=== PATIENT | female | born 1975 | race African-American/Black ===

== ENCOUNTER 2022-12-04 12:38 | Inpatient (IN) | payer BC, OTHER ==
[~2022-12-04] VITALS: Ht 170.2 cm; Wt 101.0 kg
[2022-12-04] MEDS ORDERED: MORPHINE SULFATE 4 MG/ML SYR/VIAL IV ONE (13:00)
[2022-12-04] MEDS ORDERED: SODIUM CHLORIDE 0.9% 1,000 ML IV ONE (13:00)
[2022-12-04] MEDS ORDERED: METOCLOPRAMIDE HCL 5MG/ml INJ 2ml VIAL IV ONE (13:00)
[2022-12-04 13:25] LABS: Basophils # (auto) 0 10 ^3/uL (0-0.2); Basophils % (auto) 0.5 % (0.0-2.0); Eosinophils # (auto) 0 10 ^3/uL (0-0.8); Eosinophils % (auto) 0.2 % (0.0-7.0); Monocytes # (auto) 0.6 10 ^3/uL (0-1.3)
[2022-12-04 13:27] LABS: Hematocrit 29.6 % (36.0-46.0); Lymphocytes # (auto) 1.7 10 ^3/uL (0.4-5.4); Lymphocytes % (auto) 17.8 % (10.0-50.0); Mean Corpuscular Hemoglobin 29.6 pg (28.0-32.0); Mean Corpuscular Hgb Conc. 33.7 g/dL (32.0-36.0); Mean Corpuscular Volume 87.7 fL (80.0-100.0); Monocytes % (auto) 6.3 % (0.0-12.0); Neutrophils # (auto) 7.1 10 ^3/uL (1.6-8.6); Neutrophils % (auto) 75.2 % (37.0-80.0); Red Blood Cells 3.38 10^6/uL (4.0-5.20); Red Cell Distribution Width 15.1 % (11.8-14.3); White Blood Cell 9.4 10^3/uL (4.4-10.8)
[2022-12-04] MEDS ORDERED: KETOROLAC TROMETH 30 MG/ML 1ML VIAL IV ONE ×2 (13:45→22:00)
[2022-12-04 13:49] LABS: Albumin 3.3 g/dL (3.4-5.0); BUN/Creatinine Ratio 13.9; Calcium 8.9 mg/dL (8.5-10.1); Potassium 4.1 mmol/L (3.5-5.1)
[2022-12-04 13:51] LABS: Bilirubin, Total 0.4 mg/dL (0.2-1.0); Total Protein 7.2 g/dL (6.4-8.2)
[2022-12-04 14:05] LABS: Urine Bacteria FEW /hpf (None Seen); Urine Blood 3+ /uL (Negative); Urine Mucus FEW (None Seen); Urine Specific Gravity 1.031 (1.001-1.035); Urine WBC 7 /hpf (0 - 5)
[2022-12-04] MEDS ORDERED: cefTRIAXone 1GM/50ML D5W 50 ML IV ONE (14:15)
[2022-12-04 17:25] LABS: INR 1.02 (0.9-1.15)
[2022-12-04] MEDS ORDERED: ACETAMINOPHEN 500 MG TAB PO PRN (17:30)
[2022-12-04] MEDS ORDERED: HYDROcodone-ACET 5/325MG TAB PO PRN (17:30)
[2022-12-04] MEDS ORDERED: DEXTROSE (50%) 50ML SYRG IV PRN (17:30)
[2022-12-04] MEDS ORDERED: ONDANSETRON HCL 4 MG/2 ML VIAL IV PRN (17:30)
[2022-12-04 22:00] VITALS: BP 125/84
[2022-12-04] MEDS: InsuLIN REG 1unit/0.01ml Soln (100units/ml) SC SCH (22:00)
[2022-12-04] MEDS ORDERED: KETOROLAC TROMETH 30 MG/ML 1ML VIAL IV PRN (22:00)
[2022-12-05] MEDS: ACCU-CHEK COMFORT CURVE STRIP VI SCH ×5 (00:02→21:32)
[2022-12-05] MEDS ORDERED: LOSA25TA2 PO (02:15)
[2022-12-05] MEDS ORDERED: OMEG1CAP31 PO (02:19)
[2022-12-05] MEDS ORDERED: HYDR25TA4 PO (02:19)
[2022-12-05] MEDS ORDERED: FERR18TA PO (02:19)
[2022-12-05] MEDS ORDERED: METF-370 PO (02:19)
[2022-12-05] MEDS ORDERED: ESOM40CA39 PO (02:19)
[2022-12-05 05:00] VITALS: BP 113/74
[2022-12-05] MEDS: InsuLIN REG 1unit/0.01ml Soln (100units/ml) SC SCH ×4 (06:59→21:32)
[2022-12-05 09:00] VITALS: BP 119/76
[2022-12-05 09:24] LABS: INR 0.97 (0.9-1.15); Partial Thromboplastin Time 21.5 sec (24.6-33.4)
[2022-12-05] MEDS: LOSARTAN POTASSIUM 50 MG TAB PO SCH (09:51)
[2022-12-05] MEDS: HCTZ 25 MG TAB PO SCH (09:52)
[2022-12-05] MEDS: cefTRIAXone 1GM/50ML D5W 50 ML IV SCH (09:52)
[2022-12-05] MEDS: PANTOPRAZOLE 40 MG TAB PO SCH (09:52)
[2022-12-05] MEDS: FLUTICASONE PROP NASAL SPR 0.05 % (50MCG) 16GM EACHNOSTRI SCH ×2 (12:39→21:32)
[2022-12-05 13:00] VITALS: BP_SYST 119; BP_SYST 135; BP_DIAS 76; BP_DIAS 96
[2022-12-05] MEDS: HYDROcodone-ACET 10/325MG TAB PO PRN (16:35)
[2022-12-05 17:00] VITALS: BP 130/85
[2022-12-05 22:00] VITALS: BP 134/82
[2022-12-06 05:00] VITALS: BP 141/83
[2022-12-06] MEDS: MORPHINE SULFATE INJ 2 MG/ml SYRG IV PRN ×2 (05:39→16:41)
[2022-12-06] MEDS: ACCU-CHEK COMFORT CURVE STRIP VI SCH ×4 (06:15→22:22)
[2022-12-06] MEDS: InsuLIN REG 1unit/0.01ml Soln (100units/ml) SC SCH ×4 (06:15→22:00)
[2022-12-06] MEDS ORDERED: SUCCINYLCHOLINE CHLORIDE 20 MG/ML 10ML VIAL IV ONE (07:39)
[2022-12-06] MEDS ORDERED: DOCU-94 PO ×2 (07:40)
[2022-12-06] MEDS ORDERED: IBUP800T27 PO ×2 (07:40)
[2022-12-06] MEDS ORDERED: CEPH500T PO ×2 (07:40)
[2022-12-06] MEDS ORDERED: HYDR-4072 PO ×2 (07:40)
[2022-12-06] MEDS ORDERED: fentaNYL CITRATE 100 MCG/2 ML VL ONE ×2 (07:41→09:42)
[2022-12-06] MEDS ORDERED: MIDAZOLAM HCL 2MG/2ML 2ml VIAL (1mg/ml) ONE (07:41)
[2022-12-06] MEDS ORDERED: ONDANSETRON HCL 4 MG/2 ML VIAL ONE (07:42)
[2022-12-06] MEDS ORDERED: DexAMETHasone SOD PHOS 10MG/1ML VIAL INJ ONE (07:42)
[2022-12-06] MEDS ORDERED: PROPOFOL 10 MG/ML 20 ML IV ONE (07:43)
[2022-12-06] MEDS ORDERED: ceFAZolin 1GM/50ML 100 ML IV ONE (07:58)
[2022-12-06] MEDS ORDERED: ACETAMINOPHEN IV 100 ML IV ONE (08:00)
[2022-12-06] MEDS ORDERED: ceFAZolin 1GM/50ML 50 ML IV ONE ×3 (08:00→16:00)
[2022-12-06] MEDS: cefTRIAXone 1GM/50ML D5W 50 ML IV SCH (09:00)
[2022-12-06] MEDS ORDERED: ceFAZolin 2 GM in D5W 5% 100 ML IV ONE (09:30)
[2022-12-06] MEDS ORDERED: SUGAMMADEX 200mg/2ml Vial (100MG/ML) IV ONE (09:34)
[2022-12-06] MEDS ORDERED: KETOROLAC TROMETH 60MG/2ML VIAL ONE (09:34)
[2022-12-06] MEDS ORDERED: BUPIVACAINE 0.25% INJ 50ML VIAL ONE (09:39)
[2022-12-06] MEDS: FLUTICASONE PROP NASAL SPR 0.05 % (50MCG) 16GM EACHNOSTRI SCH ×2 (10:00→22:34)
[2022-12-06] MEDS ORDERED: ACETAMINOPHEN IV 1000 MG/100ML (10MG/ML) IV ONE (10:15)
[2022-12-06] MEDS ORDERED: ONDANSETRON HCL 4 MG/2 ML VIAL IV PRN (10:30)
[2022-12-06] MEDS ORDERED: ACCU-CHEK COMFORT CURVE STRIP VI ONE (10:30)
[2022-12-06] MEDS ORDERED: HYDROcodone-ACET 5/325MG TAB PO PRN (10:30)
[2022-12-06] MEDS ORDERED: LABETALOL HCL 5 MG/ML 4ML SYRINGE IV PRN (10:30)
[2022-12-06] MEDS ORDERED: HYDROmorphone HCL 2 MG/ML VL/or syr IV PRN ×3 (10:30)
[2022-12-06 12:41] VITALS: BP 123/75
[2022-12-06] MEDS: SODIUM CHLORIDE 0.9% 1,000 ML IV SCH ×2 (14:18→16:00)
[2022-12-06] MEDS: MORPHINE SULFATE 4 MG/ML SYR/VIAL IV PRN ×2 (14:51→22:23)
[2022-12-06] MEDS: ONDANSETRON HCL 4 MG/2 ML VIAL IV PRN (16:40)
[2022-12-06] MEDS: LOSARTAN POTASSIUM 50 MG TAB PO SCH (16:46)
[2022-12-06] MEDS: PANTOPRAZOLE 40 MG TAB PO SCH (16:46)
[2022-12-06] MEDS: HCTZ 25 MG TAB PO SCH (16:47)
[2022-12-06 17:00] VITALS: BP 130/85
[2022-12-06] MEDS: HYDROcodone-ACET 10/325MG TAB PO PRN (18:19)
[2022-12-06 22:00] VITALS: BP 115/82
[2022-12-07] VITALS (13 sets, daily range): BP systolic 113–146; BP diastolic 72–95
[2022-12-07] MEDS: SODIUM CHLORIDE 0.9% 1,000 ML IV SCH ×4 (00:09→23:04)
[2022-12-07] MEDS: HYDROcodone-ACET 10/325MG TAB PO PRN (04:45)
[2022-12-07] MEDS: ONDANSETRON HCL 4 MG/2 ML VIAL IV PRN ×3 (06:19→23:03)
[2022-12-07] MEDS: ACCU-CHEK COMFORT CURVE STRIP VI SCH ×4 (06:24→22:18)
[2022-12-07] MEDS: InsuLIN REG 1unit/0.01ml Soln (100units/ml) SC SCH ×4 (06:24→22:00)
[2022-12-07] MEDS ORDERED: PHENYLEPHRINE HCL 10 MG/ML VL ONE (07:11)
[2022-12-07] MEDS: MORPHINE SULFATE 4 MG/ML SYR/VIAL IV PRN (08:42)
[2022-12-07] MEDS: cefTRIAXone 1GM/50ML D5W 50 ML IV SCH (08:46)
[2022-12-07] MEDS: FAMOTIDINE 20 MG TAB PO SCH ×2 (10:00→14:54)
[2022-12-07] MEDS: LOSARTAN POTASSIUM 50 MG TAB PO SCH ×2 (10:00→14:54)
[2022-12-07] MEDS: FLUTICASONE PROP NASAL SPR 0.05 % (50MCG) 16GM EACHNOSTRI SCH ×2 (10:00→22:18)
[2022-12-07] MEDS: HCTZ 25 MG TAB PO SCH ×2 (10:00→14:54)
[2022-12-07] MEDS: PANTOPRAZOLE 40 MG TAB PO SCH ×2 (10:00→14:55)
[2022-12-07] MEDS ORDERED: NALOXONE HCL 1MG/ML 2ML SYRINGE IV ONE (11:45)
[2022-12-07 11:55] LABS: Basophils # (auto) 0 10 ^3/uL (0-0.2); Eosinophils # (auto) 0 10 ^3/uL (0-0.8); Hematocrit 29.7 % (36.0-46.0); Lymphocytes # (auto) 1.6 10 ^3/uL (0.4-5.4); Monocytes # (auto) 0.6 10 ^3/uL (0-1.3); Nucleated Red Blood Cells % 0.2 %
[2022-12-07 11:56] LABS: Basophils % (auto) 0.1 % (0.0-2.0); Eosinophils % (auto) 0.1 % (0.0-7.0); Lymphocytes % (auto) 16.7 % (10.0-50.0); Mean Corpuscular Hemoglobin 29.6 pg (28.0-32.0); Mean Corpuscular Hgb Conc. 33.7 g/dL (32.0-36.0); Monocytes % (auto) 6.3 % (0.0-12.0); Neutrophils # (auto) 7.6 10 ^3/uL (1.6-8.6); Neutrophils % (auto) 76.8 % (37.0-80.0); Red Blood Cells 3.38 10^6/uL (4.0-5.20); Red Cell Distribution Width 14.8 % (11.8-14.3); White Blood Cell 9.8 10^3/uL (4.4-10.8)
[2022-12-07 12:10] LABS: Albumin 2.9 g/dL (3.4-5.0); Calcium 7.9 mg/dL (8.5-10.1); Potassium 3.9 mmol/L (3.5-5.1)
[2022-12-07 12:14] LABS: BUN/Creatinine Ratio 10.6; Bilirubin, Total 0.3 mg/dL (0.2-1.0); Total Protein 6.2 g/dL (6.4-8.2)
[2022-12-07] MEDS ORDERED: NALOXONE HCL 0.4 MG/ML VIAL IV STA (12:22)
[2022-12-07] MEDS ORDERED: KETOROLAC TROMETH 30 MG/ML 1ML VIAL ONE (12:36)
[2022-12-07] MEDS: KETOROLAC TROMETH 30 MG/ML 1ML VIAL IV ONE (12:45)
[2022-12-07] MEDS: MAALOX PLUS or MAALOX 30 ML PO PRN ×2 (13:42→14:55)
[2022-12-07] MEDS: KETOROLAC TROMETH 30 MG/ML 1ML VIAL IV PRN (18:59)
[2022-12-08] VITALS (23 sets, daily range): BP systolic 107–141; BP diastolic 50–86
[2022-12-08] MEDS: KETOROLAC TROMETH 30 MG/ML 1ML VIAL IV PRN ×5 (03:16→23:34)
[2022-12-08 05:41] LABS: Basophils # (auto) 0 10 ^3/uL (0-0.2); Basophils % (auto) 0.4 % (0.0-2.0); Eosinophils # (auto) 0 10 ^3/uL (0-0.8); Eosinophils % (auto) 0.2 % (0.0-7.0); Hematocrit 27.5 % (36.0-46.0); Hemoglobin 9.2 g/dL (12.2-16.2); Lymphocytes # (auto) 1.9 10 ^3/uL (0.4-5.4); Lymphocytes % (auto) 19.7 % (10.0-50.0); Mean Corpuscular Hemoglobin 29.5 pg (28.0-32.0); Mean Corpuscular Hgb Conc. 33.4 g/dL (32.0-36.0); Mean Corpuscular Volume 88.3 fL (80.0-100.0); Monocytes # (auto) 0.8 10 ^3/uL (0-1.3); Monocytes % (auto) 8.3 % (0.0-12.0); Neutrophils # (auto) 6.8 10 ^3/uL (1.6-8.6); Neutrophils % (auto) 71.4 % (37.0-80.0); Nucleated Red Blood Cells % 0.1 %; Red Blood Cells 3.11 10^6/uL (4.0-5.20); Red Cell Distribution Width 14.8 % (11.8-14.3); White Blood Cell 9.5 10^3/uL (4.4-10.8)
[2022-12-08 05:57] LABS: BUN/Creatinine Ratio 15.3; Calcium 7.8 mg/dL (8.5-10.1); Potassium 3.6 mmol/L (3.5-5.1)
[2022-12-08] MEDS: InsuLIN REG 1unit/0.01ml Soln (100units/ml) SC SCH ×4 (06:22→21:59)
[2022-12-08] MEDS: ACCU-CHEK COMFORT CURVE STRIP VI SCH ×4 (06:22→21:59)
[2022-12-08] MEDS: SODIUM CHLORIDE 0.9% 1,000 ML IV SCH ×2 (06:48→11:15)
[2022-12-08] MEDS: cefTRIAXone 1GM/50ML D5W 50 ML IV SCH (07:34)
[2022-12-08] MEDS: ONDANSETRON HCL 4 MG/2 ML VIAL IV PRN ×3 (08:04→23:34)
[2022-12-08] MEDS ORDERED: HYDROcodone-ACET 10/325MG TAB PO PRN (08:30)
[2022-12-08] MEDS: PANTOPRAZOLE 40 MG TAB PO SCH (09:18)
[2022-12-08] MEDS: HCTZ 25 MG TAB PO SCH (09:19)
[2022-12-08] MEDS: LOSARTAN POTASSIUM 50 MG TAB PO SCH (09:19)
[2022-12-08] MEDS: FAMOTIDINE 20 MG TAB PO SCH (09:19)
[2022-12-08] MEDS: FLUTICASONE PROP NASAL SPR 0.05 % (50MCG) 16GM EACHNOSTRI SCH ×2 (09:19→21:59)
[2022-12-09] VITALS: BP 127/73
[2022-12-09] MEDS: SODIUM CHLORIDE 0.9% 1,000 ML IV SCH (00:35)
[2022-12-09 04:00] VITALS: BP 139/86
[2022-12-09 06:06] LABS: Basophils # (auto) 0 10 ^3/uL (0-0.2); Basophils % (auto) 0.4 % (0.0-2.0); Eosinophils # (auto) 0.1 10 ^3/uL (0-0.8); Eosinophils % (auto) 1.2 % (0.0-7.0); Hemoglobin 8.9 g/dL (12.2-16.2); Lymphocytes # (auto) 2.5 10 ^3/uL (0.4-5.4); Mean Corpuscular Hemoglobin 28.7 pg (28.0-32.0); Mean Corpuscular Hgb Conc. 32.8 g/dL (32.0-36.0); Mean Corpuscular Volume 87.7 fL (80.0-100.0); Monocytes # (auto) 0.6 10 ^3/uL (0-1.3); Monocytes % (auto) 6.6 % (0.0-12.0); Neutrophils # (auto) 6.6 10 ^3/uL (1.6-8.6); Neutrophils % (auto) 66.8 % (37.0-80.0); Nucleated Red Blood Cells % 0.2 %; Red Blood Cells 3.09 10^6/uL (4.0-5.20); White Blood Cell 9.9 10^3/uL (4.4-10.8)
[2022-12-09 06:24] LABS: Calcium 8.2 mg/dL (8.5-10.1); Potassium 3.5 mmol/L (3.5-5.1)
[2022-12-09 06:27] LABS: BUN/Creatinine Ratio 10.4
[2022-12-09] MEDS: ACCU-CHEK COMFORT CURVE STRIP VI SCH ×2 (07:00→09:29)
[2022-12-09] MEDS: InsuLIN REG 1unit/0.01ml Soln (100units/ml) SC SCH ×2 (07:00→11:30)
[2022-12-09 09:00] VITALS: BP 130/91
[2022-12-09] MEDS: cefTRIAXone 1GM/50ML D5W 50 ML IV SCH (09:27)
[2022-12-09] MEDS: LOSARTAN POTASSIUM 50 MG TAB PO SCH (09:28)
[2022-12-09] MEDS: FAMOTIDINE 20 MG TAB PO SCH (09:28)
[2022-12-09] MEDS: PANTOPRAZOLE 40 MG TAB PO SCH (09:28)
[2022-12-09] MEDS: HCTZ 25 MG TAB PO SCH (09:28)
[2022-12-09] MEDS: KETOROLAC TROMETH 30 MG/ML 1ML VIAL IV PRN (09:35)
[2022-12-09] MEDS: FLUTICASONE PROP NASAL SPR 0.05 % (50MCG) 16GM EACHNOSTRI SCH (09:36)
[2022-12-09] MEDS ORDERED: traMADol HCL 50 MG TAB PO PRN (10:30)
[2022-12-09] MEDS ORDERED: CEPH-510 PO (11:30)
[2022-12-09] MEDS ORDERED: TRAM50TA2 PO (11:30)
[2022-12-09] MEDS ORDERED: IBUP800T27 PO (11:30)
[2022-12-09 13:55] VITALS: BP 130/91
[2022-12-09] MEDS ORDERED: DOCUSATE SOD 100 MG CAP PO SCH (22:00)
[2022-12-09] MEDS ORDERED: ACCU-CHEK COMFORT CURVE STRIP VI SCH (22:00)
== END 2022-12-09 14:50 | disposition home or self-care (01) | DRG 742 ==
LOC: EEVIPCON 12:38 → ER 12:38 → OVERFLOW 17:30 → CENTRAL 19:40 → DOU IN ICU 12-07 13:19
PROVIDERS: ADMIT Nurse Practitioner Acute Care; ATTEND Nurse Practitioner Acute Care
PROC: 0UT50ZZ Resection of Right Fallopian Tube, Open Approach (ICD-10-PCS; 2022-12-06)
PROC: 0USG0ZZ Reposition Vagina, Open Approach (ICD-10-PCS; 2022-12-06)
PROC: 0UT90ZZ Resection of Uterus, Open Approach (ICD-10-PCS; principal; 2022-12-06 08:12)
DX: D25.9 Leiomyoma of uterus, unspecified (principal); N13.6 Pyonephrosis; K76.9 Liver disease, unspecified; I10 Essential (primary) hypertension; E11.9 Type 2 diabetes mellitus without complications; E66.9 Obesity, unspecified; Z68.31 Body mass index [BMI] 31.0-31.9, adult; E86.0 Dehydration; N92.0 Excessive and frequent menstruation with regular cycle; Z82.49 Family history of ischemic heart disease and other diseases of the circulatory system; Z83.3 Family history of diabetes mellitus; Z90.711 Acquired absence of uterus with remaining cervical stump; Z88.5 Allergy status to narcotic agent
CPT/HCPCS: 36415; 71045; 72195; 74176; 74181; 80048; 80053; 81001; 81025; 82962; 83036; 83605; 83690; 84484; 84702; 85025; 85610; 85730; 86304; 86850; 86900; 86901; 87081; 87086; 87426; 96365; 96375; 97110; 97116; 97163; 97530; G0378; J0131; J0330; J0690; J0696; J1100; J1815; J1885; J2250; J2405; J2704; J3490

== ENCOUNTER → 2023-01-29 | Outpatient (CLI) | payer BC ==
[~2023-01-29] MED LIST: CEPH-510 PO; ESOM40CA39 PO; FERR18TA PO; HYDR25TA4 PO; IBUP800T27 PO; LOSA25TA2 PO; METF-370 PO; OMEG1CAP31 PO; TRAM50TA2 PO
[2023-01-29 11:35] LABS: Urine Bacteria FEW /hpf (None Seen); Urine Blood Negative /uL (Negative); Urine Mucus FEW (None Seen); Urine Specific Gravity 1.022 (1.001-1.035); Urine WBC 1 /hpf (0 - 5)
[2023-01-29 11:53] LABS: Albumin 3.6 g/dL (3.4-5.0); Potassium 3.9 mmol/L (3.5-5.1)
[2023-01-29 11:59] LABS: Bilirubin, Total 0.2 mg/dL (0.2-1.0); Total Protein 7.9 g/dL (6.4-8.2)
[2023-01-29 12:08] LABS: Basophils # (auto) 0 10 ^3/uL (0-0.2); Basophils % (auto) 0.6 % (0.0-2.0); Eosinophils # (auto) 0.1 10 ^3/uL (0-0.8); Hemoglobin 11.1 g/dL (12.2-16.2); Monocytes # (auto) 0.4 10 ^3/uL (0-1.3); Neutrophils # (auto) 3.1 10 ^3/uL (1.6-8.6); Nucleated Red Blood Cells % 0.1 %
[2023-01-29 12:10] LABS: Eosinophils % (auto) 1.1 % (0.0-7.0); Hematocrit 33.5 % (36.0-46.0); Lymphocytes # (auto) 2.2 10 ^3/uL (0.4-5.4); Lymphocytes % (auto) 38.7 % (10.0-50.0); Mean Corpuscular Hgb Conc. 33.1 g/dL (32.0-36.0); Mean Corpuscular Volume 84.6 fL (80.0-100.0); Monocytes % (auto) 6.5 % (0.0-12.0); Neutrophils % (auto) 53.1 % (37.0-80.0); Red Blood Cells 3.97 10^6/uL (4.0-5.20); Red Cell Distribution Width 15.3 % (11.8-14.3); White Blood Cell 5.8 10^3/uL (4.4-10.8)
== END | disposition home or self-care (01) ==
LOC: LAB 10:51
PROVIDERS: ATTEND Internal Medicine
DX: E11.9 Type 2 diabetes mellitus without complications (principal); I10 Essential (primary) hypertension; E78.5 Hyperlipidemia, unspecified
CPT/HCPCS: 36415; 80053; 80061; 81001; 82043; 83880; 85025

== ENCOUNTER → 2023-02-05 | Outpatient (CLI) | payer BC | END | disposition home or self-care (01) | LOC: XYW 10:30 | PROVIDERS: ATTEND Internal Medicine | DX: I08.3 Combined rheumatic disorders of mitral, aortic and tricuspid valves (principal); I10 Essential (primary) hypertension | CPT/HCPCS: 93306 ==